=== PATIENT | male | born 1995 | race Caucasian/White ===

== ENCOUNTER 2018-04-08 20:53 | Emergency (ER) | payer SELFPAY ==
[~2018-04-08] VITALS: Ht 188 cm; Wt 113.0 kg
[2018-04-08] MEDS ORDERED: IBUPROFEN 600MG TABLET PO ONE (21:45)
[2018-04-08] MEDS ORDERED: HYDROCODONE/ACETAMINOPHEN 5/325MG TABLET PO ONE (23:00)
[2018-04-08 23:40] VITALS: BP 140/75
== END 2018-04-08 23:54 | disposition home or self-care (01) ==
LOC: ER 21:40
DX: M25.571 Pain in right ankle and joints of right foot (principal); R03.0 Elevated blood-pressure reading, without diagnosis of hypertension
CPT/HCPCS: 73590; 73610; 99284